=== PATIENT | female | born 1985 | race Two or more races ===

== ENCOUNTER 2023-01-13 11:00 | Inpatient (IN) | payer OTHER ==
[~2023-01-13] VITALS: Ht 160 cm; Wt 92.5 kg
[2023-01-14] MEDS ORDERED: HEMATRON PO (11:17)
[2023-01-14] MEDS ORDERED: AYGESTIN5 MG PO (11:18)
[2023-01-14] MEDS ORDERED: ZYRTEC10 M3 PO (11:18)
[2023-01-14] MEDS ORDERED: FOLIC ACID PO (11:19)
[2023-01-16] MEDS ORDERED: BUDESONIDE0.5 MG/21 (16:24)
[2023-01-16] MEDS ORDERED: LEVALBUTER0.63 MG/3 (16:24)
[2023-01-16] MEDS ORDERED: FOLIC ACID0.4 MG PO (16:25)
[2023-01-16] MEDS ORDERED: VITAMIN D310 MC1 PO (16:25)
[2023-01-16] MEDS ORDERED: VITAMIN C100 MG PO (16:26)
[2023-01-16] MEDS ORDERED: HEMATRON PO (16:29)
[2023-01-16] MEDS ORDERED: CHOLESTOFF COM1 EACH PO (16:32)
[2023-01-16] MEDS ORDERED: CHOLESTOFF PO (16:32)
[2023-01-17] MEDS ORDERED: IBU800 MG PO (13:50)
[2023-01-17] MEDS ORDERED: PERCOCET 5-3251 EACH PO (13:50)
[2023-01-17] MEDS ORDERED: COLACE100 MG PO (13:50)
[2023-01-17] MEDS ORDERED: SIMETHICONE80 MG PO (13:50)
== END 2023-01-17 15:29 | disposition home or self-care (01) | DRG 743 ==
LOC: O/R 01-16 06:27 → SURH 01-16 10:30 → OB/GYN 01-16 16:23 → SURH 01-16 22:00 → OB/GYN 01-17 15:29
PROVIDERS: ADMIT Student in an Organized Health Care Education/Training Program; ATTEND Student in an Organized Health Care Education/Training Program
PROC: 0UT74ZZ Resection of Bilateral Fallopian Tubes, Percutaneous Endoscopic Approach (ICD-10-PCS; 2023-01-16)
PROC: 0TJB8ZZ Inspection of Bladder, Via Natural or Artificial Opening Endoscopic (ICD-10-PCS; 2023-01-16)
PROC: 0UT94ZZ Resection of Uterus, Percutaneous Endoscopic Approach (ICD-10-PCS; principal; 2023-01-16 22:00)
DX: D25.1 Intramural leiomyoma of uterus (principal); Z20.822 Contact with and (suspected) exposure to COVID-19

== ENCOUNTER 2023-05-21 22:09 | Emergency (ER) | payer OTHER ==
[~2023-05-21] VITALS: Ht 160 cm; Wt 88.9 kg
[~2023-05-21 22:09] MED LIST: AYGESTIN5 MG PO; BUDESONIDE0.5 MG/21; CHOLESTOFF COM1 EACH PO; CHOLESTOFF PO; COLACE100 MG PO; FOLIC ACID PO; FOLIC ACID0.4 MG PO; HEMATRON PO; IBU800 MG PO; LEVALBUTER0.63 MG/3; PERCOCET 5-3251 EACH PO; SIMETHICONE80 MG PO; VITAMIN C100 MG PO; VITAMIN D310 MC1 PO; ZYRTEC10 M3 PO
[2023-05-22 00:50] LABS: URINE APPEARANCE Clear; URINE BILIRRUBIN Negative (NEGATIVE); URINE BLOOD Large; URINE COLOR Yellow; URINE GLUCOSE Negative (NEGATIVE); URINE LEUKOCYTE Negative; URINE NITRATE Negative; URINE PROTEIN Negative (NEGATIVE); URINE UROBILINOGEN 0.2 E.U./dl
[2023-05-22 00:51] LABS: HEMATOCRIT 40.1 % (36.0-45.00); HEMOGLOBIN 13.9 g/dL (12.0-15.00); MEAN CELL VOLUME 88.7 fL (80.00-100.00); MEAN CORPUSCULAR HEMOGLOBIN 30.7 pg (27.00-32.0); MEAN CORPUSCULAR HGB CONC 34.6 g/dl (32.0-36.0); PLATELET COUNT 290 K/uL (150-450); RED BLOOD COUNT 4.52 M/uL (4.00-6.00); RED CELL DISTRIBUTION WIDTH 13.1 % (11.5-14.5)
[2023-05-22 00:53] LABS: URINE BACTERIA 59.2 uL (0.0-1933); URINE EPITHELIAL CELLS 7.5 uL (0.0-38.8); URINE RBC 4.4 uL (0.0-20.8); URINE WBC 4.6 uL (0.0-23.2)
[2023-05-22 01:10] LABS: CALCIUM 9.2 mg/dL (8.5-10.1); CREATININE SERUM 0.74 mg/dL (0.55-1.02); GFR 88.31
== END 2023-05-22 04:18 | disposition home or self-care (01) ==
LOC: ER 22:09
PROVIDERS: General Practice
DX: N93.8 Other specified abnormal uterine and vaginal bleeding (principal)

== ENCOUNTER 2023-06-05 20:12 | Emergency (ER) | payer OTHER ==
[~2023-06-05] VITALS: Ht 160 cm; Wt 89.8 kg
[2023-06-05 22:28] LABS: HEMATOCRIT 37.8 % (36.0-45.00); HEMOGLOBIN 13.4 g/dL (12.0-15.00); MEAN CELL VOLUME 87.2 fL (80.00-100.00); MEAN CORPUSCULAR HEMOGLOBIN 30.8 pg (27.00-32.0); MEAN CORPUSCULAR HGB CONC 35.4 g/dl (32.0-36.0); PLATELET COUNT 246 K/uL (150-450); RED BLOOD COUNT 4.33 M/uL (4.00-6.00); RED CELL DISTRIBUTION WIDTH 12.9 % (11.5-14.5)
[2023-06-05 22:49] LABS: ALBUMIN 3.5 gm/dL (3.4-5.0); BILIRUBIN TOTAL 0.5 mg/dL (0.3-1.2); CREATININE SERUM 0.76 mg/dL (0.55-1.02); GFR 85.63; GLOBULINA 3.3 G/DL (2.4-3.5); POTASSIUM 3.86 mEq/L (3.5-5.1); TOTAL PROTEIN 6.8 gm/dL (6.4-8.2)
[2023-06-05] MEDS ORDERED: PEPCID AC20 MG PO (23:51)
[2023-06-05] MEDS ORDERED: TUSNEL LIQUID178 ML PO (23:51)
[2023-06-05] MEDS ORDERED: PAXLOVID 300-11 EACH PO (23:51)
[2023-06-05] MEDS ORDERED: PROAIR RESPICL90 MCG IH (23:51)
== END 2023-06-06 00:06 | disposition home or self-care (01) ==
LOC: ER 20:12
PROVIDERS: General Practice
DX: U07.1 COVID-19 (principal); R00.0 Tachycardia, unspecified